=== PATIENT | male | born 1970 | race Caucasian/White ===

== ENCOUNTER 2020-02-07 00:04 | Emergency (ER) | payer OTHER ==
[~2020-02-07] VITALS: Ht 182.9 cm; Wt 90.7 kg
[2020-02-07] MEDS ORDERED: ALLEGRA ALLERG180 MG PO (00:24)
[2020-02-07] MEDS ORDERED: ROXICODONE5 MG PO (01:45)
[2020-02-07 01:54] VITALS: BP 112/76
== END 2020-02-07 01:56 | disposition home or self-care (01) ==
LOC: M.ERS 00:04
DX: S52.571A Other intraarticular fracture of lower end of right radius, initial encounter for closed fracture (principal); S50.311A Abrasion of right elbow, initial encounter; Z88.0 Allergy status to penicillin; Z88.6 Allergy status to analgesic agent; W18.39XA Other fall on same level, initial encounter; Y93.89 Activity, other specified; Y92.89 Other specified places as the place of occurrence of the external cause; Y99.8 Other external cause status

== ENCOUNTER 2021-08-19 11:18 | Emergency (ER) | payer OTHER ==
[~2021-08-19] VITALS: Ht 182.9 cm; Wt 95.3 kg
--- NOTE | ~2021-08-19 | PROC ---
[facility] [address] [place] [address] PROCEDURE REPORT Name: CINDA SANTIAGO Room: [facility]#: [id number] Admission: 08/19/21 Attend Phys: Discharge: 08/19/21 Date of : 66 Report #: [id number] THIS REPORT FOR: cc: FAM - No family physician/PCP FAM - No family physician/PCP [facility],Medical Records Staff ~ For GI report, please see the Provation report in Perceptive 7 content. By: 0651Medical Records Staff ÁNGEL /PARVIZ
[~2021-08-19 11:18] MED LIST: ALLEGRA ALLERG180 MG PO; ROXICODONE5 MG PO
[2021-08-19 17:14] LABS: MCV 87.3 fL (80.0-100.0); NUCLEATED RBCS 0 /100WBC
[2021-08-19 17:16] LABS: ABSOLUTE EOSINOPHILS 0.1 thou/uL (0.0-0.7); ABSOLUTE LYMPHOCYTES 2.8 thou/uL (0.8-5.3); ABSOLUTE MONOCYTES 0.8 thou/uL (0.0-1.2); BASOPHILS 0.3 %; EOSINOPHILS 1.2 %; HEMATOCRIT 43.5 % (42.0-52.0); HEMOGLOBIN 14.6 gm/dL (14.0-18.0); MCH 29.4 pg (26.0-34.0); MCHC 33.6 g/dL (28.0-37.0); MONOCYTES 9.3 %; MPV 7.6 fl. (7.2-11.1); PLATELET COUNT* 298 thou/uL (150-400); POLYS 57.2 %; RBC 4.98 mil/uL (4.50-6.00); RDW-CV 13.5 % (10.5-14.5); WBC 8.8 thou/uL (4.0-11.0)
[2021-08-19 17:24] LABS: CALCIUM 9.1 mg/dL (8.5-10.1); CREATININE 1.2 mg/dL (0.6-1.3); POTASSIUM 3.5 mmol/L (3.5-5.1)
[2021-08-19 17:29] LABS: ALBUMIN 4.2 g/dL (3.4-5.0); TOTAL BILIRUBIN 0.6 mg/dL (<0.1-1.0); TOTAL PROTEIN 8.1 g/dL (6.4-8.2)
[2021-08-19 19:34] VITALS: BP 112/68
--- NOTE | 2021-08-25 19:07 | PATH ---
[address] [address] PATHOLOGY RPT PROCEDURE Name: KRISTOPHER YOUSSEF Room: [facility]#: [id number] Admission: 08/19/21 Date of : 66 Discharge: 08/19/21 Report #: [id number] Path Case #: [id number] [facility] Accession Number: [id number] . 01 Material submitted: . PART A: stomach - ANTRAL POLYP R/O H. PYLORI PART B: esophagus - ESOPHAGEAL BIOPSY AT 40 CM PART C: esophagus - ESOPHAGEAL BIOPSY AT 35 CM . 01 Clinical history: . EGD IN OR W/ ANESTHESIA DILATION FOOD BOLUS . 02 Diagnosis: A. Gastric mucosa, antral, biopsy: - Mild inactive chronic gastritis. - H. pylori immunohistochemical stain is negative. . B. Squamous mucosa, esophageal biopsy at 40 cm, biopsy: - Squamous mucosa with basal cell hyperplasia and reactive changes with increased intraepithelial eosinophils. - Negative for intestinal metaplasia or dysplasia. - See comment. . C. Squamous mucosa, esophageal biopsy at 35 cm, biopsy: - Squamous mucosa with basal cell hyperplasia, reactive changes and increased intraepithelial eosinophils. - Negative for intestinal metaplasia or dysplasia. - See comment. . (DYLON:taylor; 08/25/2021) R 08/25/2021 1803 Local . 02 Comment: In both parts A and B, there are approximately 30-35 eosinophils per high-power field. . The above findings are suggestive of eosinophilic esophagitis in the proper clinical context. . (SCA:geologic technician; 08/25/2021) . 02 Electronically signed: . Marco Antonio Martinez DO, Pathologist NPI- [id number] . 01 Gross description: . A. The specimen is received in formalin, labeled "Kristopher Youssef, [place] [address] PATHOLOGY RPT PROCEDURE Name: KRISTOPHER YOUSSEF Room: [facility]#: [id number] Admission: 08/19/21 Date of : 66 Discharge: 08/19/21 Report #: [id number] Path Case #: [id number] biopsy". Received are two segments of pale booth tissue measuring 0.3 and 0.6 cm in maximum dimensions. The specimen is submitted entirely in cassette A1. . B. The specimen is received in formalin, labeled "Kristopher Youssef, esophageal biopsy at 40 cm". Received is a segment of pale booth tissue measuring 0.6 cm in maximum dimensions. The specimen is submitted entirely in cassette B1. . C. The specimen is received in formalin, labeled "Kristopher Youssef, esophageal biopsy at 35 cm". Received are three segments of pale booth tissue ranging in size from 0.3-0.5 cm in maximum dimensions. The specimen is submitted entirely in cassette C1. (CAA; 08/24/2021) QAC/QAC 08/24/2021 1029 Local . 02 Pathologist provided ICD-10: K29.50, K22.9 . 02 CPT . 813847, 304258, 597431, [id number] Specimen Comment: A courtesy copy of this report has been sent to [phone], [phone] Specimen Comment: [id number] Specimen Comment: Report sent to / DR BEAULIEU Performed at: 01 [facility] [address] [id number] MD Dixon Pascal MD Phone: [phone] Performed at: 02 [facility] [address] [id number] MD Ramón Keene MD Phone: [phone]
== END 2021-08-19 19:34 | disposition still patient (30) ==
LOC: M.SUR 11:18 → M.ERS 11:18
PROVIDERS: Physician Assistant
DX: T18.128A Food in esophagus causing other injury, initial encounter (principal); Z20.822 Contact with and (suspected) exposure to COVID-19; Z79.899 Other long term (current) drug therapy; Z88.0 Allergy status to penicillin; Z88.6 Allergy status to analgesic agent; X58.XXXA Exposure to other specified factors, initial encounter; Y93.89 Activity, other specified; Y92.89 Other specified places as the place of occurrence of the external cause; Y99.8 Other external cause status